=== PATIENT | female | born 1955 | race Caucasian/White ===

== ENCOUNTER 2019-04-07 11:07 | Emergency (ER) | payer MEDICARE, OTHER ==
[2019-04-07 11:38] VITALS: BP 161/93; PULSE 87; TEMP 98.4; BMI 31.3
--- NOTE | 2019-04-07 11:51 | PDOC ---
History of Present Illness - General Chief Complaint: Back Pain Stated Complaint: LOWER BACK PAIN Time Seen by Provider: 04/07/19 11:29 - History of Present Illness Initial Comments: 04/07/19 11:51 CHIEF COMPLAINT: back pain HISTORY OF PRESENT ILLNESS: 63 yo F with hx of asthma, murmur, CVA, GERD, HTN and hypercholesterolemia presents to fast track with back pain. 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 Patient is very anxious and states that she has had some burning with urination and that her boyfriend was diagnosed with "a bacterial infection in his groin or something" 2 month ago and is concerned she contracted the infection. She reports pain to b/l lower back as well as to her b/l inguinal regions but denies any vaginal discharge or odor. No recent travel or sick contacts. PAST MEDICAL HISTORY: asthma, murmur, CVA, GERD, HTN and hypercholesterolemia FAMILY HISTORY: Denies SOCIAL HISTORY: Denies tobacco, alcohol, illicit drug use. SURGICAL HISTORY: Denies ALLERGIES: No known drug allergies REVIEW OF SYSTEMS General/Constitutional: Denies fever or chills. Denies weakness, weight change. HEENT: Denies change in vision. Denies ear pain or discharge. Denies sore throat. Cardiovascular: Denies chest pain or shortness of breath. Respiratory: Denies cough, wheezing, or hemoptysis. Gastrointestinal: Denies nausea, vomiting, diarrhea or constipation. Denies rectal bleeding. Genitourinary: Burning with urination. Denies frequency. Musculoskeletal: Denies joint or muscle swelling or pain. Denies neck or back pain. Skin and breasts: Denies rash or easy bruising. Neurologic: Denies headache, vertigo, loss of consciousness, or loss of sensation. Psychiatric: Denies depression or anxiety. Endocrine: Denies increased thirst. Denies abnormal weight change. Hematologic/Lymphatic: Denies anemia, easy bleeding, or history of blood clots. Allergic/Immunologic: Denies hives or skin allergy. Denies latex allergy. PHYSICAL EXAM General Appearance: Well-appearing, appropriately dressed. No apparent distress , no intoxication. HEENT: EOMI, PERRLA, normal ENT inspection, normal voice, TMs normal, pharynx normal. No conjunctival pallor. No photophobia, scleral icterus. Neck: Supple. Trachea midline. No tenderness, rigidity, carotid bruit, stridor , lymphadenopathy, or thyromegaly. Respiratory/Chest: Lungs CTAB. No shortness of breath, chest tenderness, respiratory distress, accessory muscle use. No crackles, rales, rhonchi, stridor , wheezing, dullness Cardiovascular: RRR. S1, S2. No JVD, murmur, bradycardia, tachycardia. Vascular Pulses: Dorsalis-Pedis (R): 2+, Dorsalis-Pedis (L): 2+ Gastrointestinal/Abdominal: Normal bowel sounds. Abdomen soft, non-distended. No tenderness or rebound tenderness. No organomegaly, pulsatile mass, guarding , hernia, hepatomegaly, splenomegaly. Musculoskeletal/Extremities: Patient fully ambulatory. Sensation intact to b/ l lower extremities, no saddle anesthesia. Normal inspection. FROM of all extremities, normal capillary refill. Pelvis Stable. No CVA tenderness. No tenderness to extremities, pedal edema, swelling, erythema or deformity. Integumentary: Appropriate color, dry, warm. 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 Fully oriented, alert. Appropriate mood/affect. Motor strength 5/5. No appreciable EOM palsy, facial droop or sensory deficit. Past History - Past Medical History Allergies/Adverse Reactions: Allergies Allergy/AdvReac Type Severity Reaction Status Date / Time acetaminophen [From Percocet] AdvReac Vomiting Verified 03/18/16 15:20 amoxicillin trihydrate AdvReac Vomiting Verified 03/18/16 15:20 [From Augmentin] oxycodone HCl [From Percocet] AdvReac Vomiting Verified 03/18/16 15:20 potassium clavulanate AdvReac Vomiting Verified 03/18/16 15:20 [From Augmentin] Home Medications: Ambulatory Orders Amlodipine Besylate [Norvasc -] 2.5 mg PO DAILY 09/24/13 Aspirin 81 mg PO DAILY 09/24/13 Albuterol Sulfate Inhaler - [Ventolin HFA Inhaler -] 2 inh PO Q4H PRN #1 inh 05/31 Gabapentin 100 mg PO DAILY 01/09/15 Ibuprofen [Motrin -] 600 mg PO TID #21 tablet 01/01/16 Diclofenac Sodium 75 mg PO BID #20 tablet. 04/07/19 Anemia: No Asthma: Yes (in winter months) Cancer: No Cardiac Disorders: Yes (heart murmur) CVA: Yes (L hemiparesis - good recovery) COPD: No CHF: No Dementia: No Diabetes: No GI Disorders: Yes (reflux) Disorders: No HTN: Yes Hypercholesterolemia: Yes Liver Disease: No Seizures: No Thyroid Disease: No - Surgical History Abdominal Surgery: No Appendectomy: No Cardiac Surgery: No Cholecystectomy: Yes Lung Surgery: No Neurologic Surgery: No Orthopedic Surgery: No - Immunization History Td Vaccination: Yes TDAP Vaccination: Yes Immunization Up to Date: Yes - Psycho Social/Smoking Cessation Hx Smoking Status: No Smoking History: Never smoked Years of Tobacco Use: 0 Have you smoked in the past 12 months: No Number of Cigarettes Smoked Daily: 0 Cigars Per Day: 0 Information on smoking cessation initiated: No Hx Alcohol Use: No Drug/Substance Use Hx: No Substance Use Type: None Hx Substance Use Treatment: No *Physical Exam - Vital Signs Last Vital Signs Temp Pulse Resp BP Pulse Ox 98.4 F 87 16 161/93 100 04/07/19 11:26 04/07/19 11:26 04/07/19 11:26 04/07/19 11:26 04/07/19 11:26 Medical Decision Making - Medical Decision Making 04/07/19 12:02 63 yo F with hx of asthma, murmur, CVA, GERD, HTN and hypercholesterolemia presents to fast track with back pain. -UA, UCx 04/07/19 12:46 Patient requests empiric treatment for STDs. -azithromycin, ceftriaxone Will treat for muscle strain of lower back give recent work injury. Advised patient to take medication as prescribed and follow up with ortho if symptoms persist past 1 week. Advised patient of signs and symptoms for return to ED. Patient verbalized understanding and agrees to plan. Discharge - Discharge Information Problems reviewed: Yes Clinical Impression/Diagnosis: Possible exposure to STD Low back strain Qualifiers: Encounter type: initial encounter Qualified Code(s): S39.012A - Strain of muscle, fascia and tendon of lower back, initial encounter Condition: Stable Disposition: HOME - Admission No - Additional Discharge Information Prescriptions: Diclofenac Sodium 75 mg PO BID #20 tablet. - Follow up/Referral Referrals: Khalida Pompa [Primary Care Provider] - Herberth Kam MD [Staff Physician] - - Patient Discharge Instructions Patient Printed Discharge Instructions: DI for Low Back Pain - Post Discharge Activity Work/Back to School Note: Back to Work
[2019-04-07 12:26] LABS: EPI CELLS 6.2 /HPF (0-5/HPF); HYALINE CASTS 4 /lpf (0-8); URINE APPEARANCE CLEAR; URINE BACTERIA 82.6 /hpf (NEGATIVE); URINE BILIRUBIN NEGATIVE (NEGATIVE); URINE COLOR YELLOW; URINE GLUCOSE (UA) NEGATIVE (NEGATIVE); URINE KETONE NEGATIVE (NEGATIVE); URINE LEUK ESTERASE TRACE (NEGATIVE); URINE NITRITE NEGATIVE (NEGATIVE); URINE PROTEIN NEGATIVE (NEGATIVE); URINE RBC 3 /hpf (0-4); URINE UROBILINOGEN 0.2 mg/dL (0.2-1.0); URINE WBC 6 /hpf (0-5)
[2019-04-07] MEDS ORDERED: AZITHROMYCIN 500 MG TABLET PO ONE (12:37)
[2019-04-07] MEDS ORDERED: ONDANSETRON *ODT* 4 MG TABLET SL ONE (12:45)
[2019-04-07] MEDS ORDERED: AZITHROMYCIN 250 MG TABLET ONE (12:50)
[2019-04-07] MEDS ORDERED: ONDANSETRON *ODT* 4 MG TABLET ONE (12:50)
== END 2019-04-07 13:01 | disposition home or self-care (01) ==
LOC: JERFT 11:07
DX: Z20.2 Contact with and (suspected) exposure to infections with a predominantly sexual mode of transmission (principal); S39.012A Strain of muscle, fascia and tendon of lower back, initial encounter; X50.1XXA Overexertion from prolonged static or awkward postures, initial encounter; Y93.89 Activity, other specified; Y92.89 Other specified places as the place of occurrence of the external cause; Y99.0 Civilian activity done for income or pay; I10 Essential (primary) hypertension; E78.00 Pure hypercholesterolemia, unspecified; Z87.09 Personal history of other diseases of the respiratory system; I69.854 Hemiplegia and hemiparesis following other cerebrovascular disease affecting left non-dominant side; K21.9 Gastro-esophageal reflux disease without esophagitis; R01.1 Cardiac murmur, unspecified; Z88.6 Allergy status to analgesic agent; Z88.0 Allergy status to penicillin; Z88.5 Allergy status to narcotic agent
CPT/HCPCS: 36415; 81003; 87086; 87186; 87491; 87591; 96372; 99283-25; Q0162

== ENCOUNTER 2019-04-09 15:44 | Emergency (ER) | payer MEDICARE, OTHER ==
--- NOTE | 2019-04-09 15:54 | PDOC ---
Rapid Medical Evaluation Time Seen by Provider: 04/09/19 15:49 Medical Evaluation: Allergies Allergy/AdvReac Type Severity Reaction Status Date / Time acetaminophen [From Percocet] AdvReac Vomiting Verified 03/18/16 15:20 amoxicillin trihydrate AdvReac Vomiting Verified 03/18/16 15:20 [From Augmentin] oxycodone HCl [From Percocet] AdvReac Vomiting Verified 03/18/16 15:20 potassium clavulanate AdvReac Vomiting Verified 03/18/16 15:20 [From Augmentin] 04/09/19 15:53 CC: Back pain. Low colony count Klebsiella in urine. Not on abx PE: Right lower back pain Orders: labs Patient will proceed to ED for further evaluation. 04/09/19 15:55 Discharge Disposition - Diagnosis Back pain - Referrals - Patient Instructions - Post Discharge Activity
[2019-04-09 15:57] VITALS: BP 134/91; PULSE 101; TEMP 98.2; BMI 32.3
[2019-04-09] MEDS ORDERED: KETOROLAC TROMETHAMINE 30 MG/1 ML VIAL IM ONE (16:35)
--- NOTE | 2019-04-09 16:37 | PDOC ---
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 Patient states she was seen here 2 days ago and she was given pain medicine is not working. Review of the EMR shows she was given Toradol in the ER which she states works and then she was given diclofenac which has not worked. Patient denies dysuria. Patient's urine culture showed 50-60,000 Klebsiella. Patient was also presumptively treated for STDs. Patient has no fever and where she struggles the back pain is right on the lumbar sacral spine and going across the top of the pelvis and goes down the right leg. Patient states that the pain is worse when she bends forward to lift something. There is no numbness. Patient otherwise appears well patient is ambulatory. GENERAL/CONSTITUTIONAL: No fever, weakness. dizziness HEAD, EYES, EARS, NOSE AND THROAT: No change in vision. No ear pain or discharge. No sore throat. CARDIOVASCULAR: No chest pain RESPIRATORY: No shortness of breath or cough GASTROINTESTINAL: No pain, nausea, vomiting, diarrhea or constipation GENITOURINARY: No dysuria MUSCULOSKELETAL: No neck, +back pain SKIN: No rash NEUROLOGIC: No headache, vertigo, loss of consciousness, or loss of sensation. GENERAL: The patient is awake, alert, and fully oriented, in no acute distress. HEAD: Normal with no signs of trauma. EYES: Pupils equal, round and reactive to light, sclera anicteric, conjunctiva clear. ENT: pharynx: no erythema, no exudate, uvula midline NECK: supple CHEST: clear, nontender, rr ABD: soft, nontender BACK: + Lower lumbar sacral tenderness, no CVAT EXTREMITIES: Normal range of motion, no edema. NEUROLOGICAL: Normal speech, normal gait. SKIN: Warm, Dry 04/09/19 16:53 Past History - Past Medical History Allergies/Adverse Reactions: Allergies Allergy/AdvReac Type Severity Reaction Status Date / Time acetaminophen [From Percocet] AdvReac Vomiting Verified 04/09/19 15:54 amoxicillin trihydrate AdvReac Vomiting Verified 04/09/19 15:54 [From Augmentin] oxycodone HCl [From Percocet] AdvReac Vomiting Verified 04/09/19 15:54 potassium clavulanate AdvReac Vomiting Verified 04/09/19 15:54 [From Augmentin] Home Medications: Ambulatory Orders Amlodipine Besylate [Norvasc -] 2.5 mg PO DAILY 09/24/13 Aspirin 81 mg PO DAILY 09/24/13 Albuterol Sulfate Inhaler - [Ventolin HFA Inhaler -] 2 inh PO Q4H PRN #1 inh 05/31 Gabapentin 100 mg PO DAILY 01/09/15 Ibuprofen [Motrin -] 600 mg PO TID #21 tablet 01/01/16 Diclofenac Sodium 75 mg PO BID #20 tablet. 04/07/19 Acetaminophen W/ Codeine #3 [Tylenol # 3 -] 1 tab PO Q6H PRN #20 tablet MDD 4 Anemia: No Asthma: Yes (in winter months) Cancer: No Cardiac Disorders: Yes (heart murmur) CVA: Yes (L hemiparesis - good recovery) COPD: No CHF: No Dementia: No Diabetes: No GI Disorders: Yes (reflux) Disorders: No HTN: Yes Hypercholesterolemia: Yes Liver Disease: No Seizures: No Thyroid Disease: No - Surgical History Abdominal Surgery: No Appendectomy: No Cardiac Surgery: No Cholecystectomy: Yes Lung Surgery: No Neurologic Surgery: No Orthopedic Surgery: No - Immunization History Td Vaccination: Yes TDAP Vaccination: Yes Immunization Up to Date: Yes - Psycho Social/Smoking Cessation Hx Smoking Status: No Smoking History: Never smoked Years of Tobacco Use: 0 Have you smoked in the past 12 months: No Number of Cigarettes Smoked Daily: 0 Cigars Per Day: 0 Hx Alcohol Use: No Drug/Substance Use Hx: No Substance Use Type: None Hx Substance Use Treatment: No *Physical Exam - Vital Signs Last Vital Signs Temp Pulse Resp BP Pulse Ox 98.2 F 101 H 22 H 134/91 100 04/09/19 15:54 04/09/19 15:54 04/09/19 15:54 04/09/19 15:54 04/09/19 15:54 ED Treatment Course - RADIOLOGY Radiology Studies Ordered: Category Date Time Status SPINE-LUMBAR SACRAL [RAD] Stat Radiology 04/09/19 16:36 Ordered Medical Decision Making - Medical Decision Making 04/09/19 16:54 Patient is a 63-year-old female with a history of CVA, asthma, elevated cholesterol, hypertension 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 Pain is worse when she bends over and goes down her right leg. There is no numbness. Patient has no fever, no dysuria. Patient is ambulatory. 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 Patient had a UA that showed some bacteria 2 days ago in the ER, culture was nondiagnostic but had bacteria in it. Will repeat UA. Patient would also like an x-ray of her lower back. She wants better pain medicine. 04/09/19 17:52 UA today is negative, patient's x-ray shows degenerative changes, stool. Patient states she is not allergic to Percocet, and made her dizzy and she was taking it only at night. After full discussion regarding options of medications we decided on Tylenol with codeine. She has a appointment with Dr. Kam on Saturday. Symptoms are consistent with musculoskeletal origin Discussed issues, findings, results, applicable medications and treatments and follow-up. All these were understood and all questions were answered Discharge - Discharge Information Problems reviewed: Yes Clinical Impression/Diagnosis: Back pain Qualifiers: Back pain location: low back pain Chronicity: unspecified Back pain laterality : right Sciatica presence: with sciatica Sciatica laterality: sciatica of right side Qualified Code(s): M54.41 - Lumbago with sciatica, right side Condition: Stable Disposition: HOME - Admission No - Additional Discharge Information Prescriptions: Acetaminophen W/ Codeine #3 [Tylenol # 3 -] 1 tab PO Q6H PRN #20 tablet MDD 4 PRN Reason: Pain Prescription Drug Monitoring Program (I-STOP) results: I-STOP reviewed and no issues identified - Follow up/Referral Referrals: Khalida Pompa [Primary Care Provider] - Herberth Kam MD [Staff Physician] - - Patient Discharge Instructions Patient Printed Discharge Instructions: DI for Low Back Pain, DI for Prescription Opioid Use Additional Instructions: No heavy lifting or bending Apply ice to the area 20 minutes every 2 hours for the next 2 days Continue taking Motrin 600 mg every 6 hours for pain. If still in pain he can also take Tylenol with codeine every 6 hours. Return to the nearest ER if numbness, weakness, severe pain, problems with urinating or having bowel movements. Follow-up with Dr. 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
[2019-04-09] MEDS ORDERED: KETOROLAC TROMETHAMINE 30 MG/1 ML VIAL ONE (16:38)
[2019-04-09 17:37] LABS: URINE APPEARANCE TURBID; URINE BILIRUBIN NEGATIVE (NEGATIVE); URINE COLOR YELLOW; URINE GLUCOSE (UA) NEGATIVE (NEGATIVE); URINE KETONE NEGATIVE (NEGATIVE); URINE LEUK ESTERASE NEGATIVE (NEGATIVE); URINE NITRITE NEGATIVE (NEGATIVE); URINE PROTEIN NEGATIVE (NEGATIVE); URINE UROBILINOGEN 0.2 mg/dL (0.2-1.0)
== END 2019-04-09 18:01 | disposition home or self-care (01) ==
LOC: JERFT 15:44
PROC: 3E0233Z Introduction of Anti-inflammatory into Muscle, Percutaneous Approach (ICD-10-PCS; principal; 2019-04-09)
DX: M54.41 Lumbago with sciatica, right side (principal); I10 Essential (primary) hypertension; E78.00 Pure hypercholesterolemia, unspecified; K21.9 Gastro-esophageal reflux disease without esophagitis; R01.1 Cardiac murmur, unspecified; J45.909 Unspecified asthma, uncomplicated; Z86.73 Personal history of transient ischemic attack (TIA), and cerebral infarction without residual deficits; Z88.6 Allergy status to analgesic agent; Z88.0 Allergy status to penicillin; Z88.1 Allergy status to other antibiotic agents
CPT/HCPCS: 72100-TC-FY; 81003; 87086; 99281-25

== ENCOUNTER 2019-06-27 10:59 | Emergency (ER) | payer OTHER ==
[2019-06-27 11:20] VITALS: TEMP 97.9; BMI 31.3
[2019-06-27] MEDS ORDERED: ACETAMINOPHEN 1000 MG/100 ML VIAL (NON FORMULARY) IVPB ONE (11:41)
--- NOTE | 2019-06-27 11:43 | PDOC ---
History of Present Illness - General Chief Complaint: Chest Pain Stated Complaint: CHEST PAIN Time Seen by Provider: 06/27/19 11:18 History Source: Patient Exam Limitations: No Limitations - History of Present Illness Initial Comments: 06/27/19 15:16 63y F with PMH of HTN, Asthma presenting to ED with complaints of L sided chest pain x3 days worsened by moving the L arm. Pt states that the pain is dull and she gets short bursts of sharp pains underneath the L breast. She has been taking Tylenol without relief. She denies SOB, back pain, headache, abdominal pain, leg swelling/calf pain, recent surgeries, cough, congestion, travel, history of [place], history of smoking. PMD: Sun PMH: see hpi PSH: cholecystectomy Meds: amlodipine Allergies: Social: denies Past History - Past Medical History Allergies/Adverse Reactions: Allergies Allergy/AdvReac Type Severity Reaction Status Date / Time acetaminophen [From Percocet] AdvReac Vomiting Verified 04/09/19 15:54 amoxicillin trihydrate AdvReac Vomiting Verified 04/09/19 15:54 [From Augmentin] oxycodone HCl [From Percocet] AdvReac Vomiting Verified 04/09/19 15:54 potassium clavulanate AdvReac Vomiting Verified 04/09/19 15:54 [From Augmentin] Home Medications: Ambulatory Orders Amlodipine Besylate [Norvasc -] 2.5 mg PO DAILY 09/24/13 Aspirin 81 mg PO DAILY 09/24/13 Albuterol Sulfate Inhaler - [Ventolin HFA Inhaler -] 2 inh PO Q4H PRN #1 inh 05/31 Gabapentin 100 mg PO DAILY 01/09/15 Ibuprofen [Motrin -] 600 mg PO TID #21 tablet 01/01/16 Diclofenac Sodium 75 mg PO BID #20 tablet.dr 04/07/19 Acetaminophen W/ Codeine #3 [Tylenol # 3 -] 1 tab PO Q6H PRN #20 tablet MDD 4 Methocarbamol [Robaxin -] 750 mg PO BID #10 tablet 06/27/19 Anemia: No Asthma: Yes (in winter months) Cancer: No Cardiac Disorders: Yes (heart murmur) CVA: Yes (L hemiparesis - good recovery) COPD: No CHF: No Dementia: No Diabetes: No GI Disorders: Yes (reflux) Disorders: No HTN: Yes Hypercholesterolemia: Yes Liver Disease: No Seizures: No Thyroid Disease: No - Surgical History Abdominal Surgery: No Appendectomy: No Cardiac Surgery: No Cholecystectomy: Yes Lung Surgery: No Neurologic Surgery: No Orthopedic Surgery: No - Immunization History Td Vaccination: Yes TDAP Vaccination: Yes Immunization Up to Date: Yes - Psycho Social/Smoking Cessation Hx Smoking Status: No Smoking History: Never smoked Years of Tobacco Use: 0 Have you smoked in the past 12 months: No Number of Cigarettes Smoked Daily: 0 Cigars Per Day: 0 Information on smoking cessation initiated: No Hx Alcohol Use: No Drug/Substance Use Hx: No Substance Use Type: None Hx Substance Use Treatment: No Review of Systems - Review of Systems Constitutional: No: Symptoms Reported HEENTM: No: Symptoms Reported Respiratory: No: Symptoms reported Cardiac (ROS): Yes: See HPI ABD/GI: No: Symptoms Reported : No: Symptoms Reported Musculoskeletal: No: Symptoms Reported Integumentary: No: Symptoms Reported Neurological: No: Symptoms reported *Physical Exam - Vital Signs Last Vital Signs Temp Pulse Resp BP Pulse Ox 97.9 F 81 16 144/88 98 06/27/19 11:09 06/27/19 11:09 06/27/19 11:09 06/27/19 11:06/27/19 11:40 - Physical Exam General Appearance: Yes: Nourished, Appropriately Dressed. No: Apparent Distress HEENT: positive: EOMI, OBINNA, Normal ENT Inspection Neck: positive: Trachea midline, Supple. negative: Lymphadenopathy (R), Lymphadenopathy (L) Respiratory/Chest: positive: Chest Tender (underneath L breast and L lateral ribs and back), Lungs Clear, Normal Breath Sounds. negative: Crackles, Rales, Rhonchi, Stridor, Wheezing Cardiovascular: positive: Regular Rhythm, Regular Rate, S1, S2. negative: Edema , JVD, Murmur Vascular Pulses: Dorsalis-Pedis (R): 2+, Doralis-Pedis (L): 2+ Gastrointestinal/Abdominal: positive: Normal Bowel Sounds, Soft. negative: Tender Musculoskeletal: negative: CVA Tenderness Extremity: positive: Normal Capillary Refill. negative: Swelling, Calf Tenderness, Erythema Integumentary: positive: Normal Color, Dry, Warm. 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 No lesions seen. highly suspect msk. -ekg, cxr, trop, basic labs. CTA all labs wnl. negative trop, neg xray. CTA negative for pe, aneurysm pt given ofirmev, toradol and robaxin without resolution of symptoms. 2nd trop negative. pt given option to stay for observation or dc home with pmd f/u. pt has been having pain for 3 days. negative troponin, negative workup. chest is tender to palpation. pt expressed desire for dc. will dc. given strict return precautions. Discharge - Discharge Information Problems reviewed: Yes Clinical Impression/Diagnosis: Chest pain Qualifiers: Chest pain type: unspecified Qualified Code(s): R07.9 - Chest pain, unspecified Condition: Stable Disposition: HOME - Admission No - Additional Discharge Information Prescriptions: Methocarbamol [Robaxin -] 750 mg PO BID #10 tablet - Follow up/Referral Referrals: Sara Pompa-Curtis Acevedo [Primary Care Provider] - Lucas Torres MD [Staff Physician] - Meng Humphrey MD [Staff Physician] - Anna Stout MD [Staff Physician] - Darrell Cartwright MD [Staff Physician] - Sergio Nicole MD [Staff Physician] - Alfred Garces MD [Staff Physician] - Abimael Harrison MD [Staff Physician] - German Kaur MD [Staff Physician] - Atilio Haskins MD [Staff Physician] - - Patient Discharge Instructions Patient Printed Discharge Instructions: DI for Atypical Chest Pain, DI for Chest Pain Additional Instructions: You were seen in the emergency room today for chest pain. The blood work, CT scan, EKG appear normal. The most likely cause is a muscular pain because of the pain with movement. A prescription was sent to your pharmacy, take as directed. Please follow up with your doctor on Saturday. Referral to cardiology has been provided. Information is provided below. Please come back to the emergency room for worsening chest pain, you have difficulty breathing or if any new or concerning symptom develops. Thank you - Post Discharge Activity Work/Back to School Note: Back to Work
--- NOTE | 2019-06-27 11:43 | PDOC ---
Attending Attestation - Resident Resident Name: LeighannSaSilvia - ED Attending Attestation I have performed the following: I have examined & evaluated the patient, The case was reviewed & discussed with the resident, I agree w/resident's findings & plan, Exceptions are as noted - HPI HPI: 06/27/19 11:45 Patient is a 63-year-old female with a history of CVA, asthma, elevated cholesterol, hypertension who presents to the ER with a complaint of chest pain Patient states that her chest pain began approximately 3 days ago. Chest pain began at work. She has been away from work for the last 2 days. Chest pain associated with no fevers or chills. No associated cough. Chest pain is described as a dull pressure/ache, rated 7/10, with intermittent sharp stabbing pain believed below the breast. Patient's states chest pain is worse with movement of the left arm. Patient denies direct trauma to the chest wall. No prior episodes like this. Pain does not worsen with exertion 06/27/19 13:17 - Physicial Exam PE: 06/27/19 11:39 GENERAL: The patient is awake, alert, and fully oriented, in no acute distress. HEAD: Normal with no signs of trauma. EYES: Pupils equal, round and reactive to light, sclera anicteric, conjunctiva clear. ENT: pharynx: no erythema, no exudate, uvula midline NECK: supple CHEST: clear, nontender, rr, left-sided chest wall tenderness to palpation, pain with movement of the left arm ABD: soft, nontender EXTREMITIES: Normal range of motion, no edema. NEUROLOGICAL: Normal speech, normal gait. SKIN: Warm, Dry 04/09/19 16:53 06/27/19 11:43 - Medical Decision Making 06/27/19 13:18 Differential includes cardiac ischemia, pe, asthma exacerbation, pneumonia, pneumothorax, pleural effusion, costochondritis, pericarditis, GERD. Laboratory Tests 06/27/19 06/27/19 11:30 11:30 WBC 7.7 Hgb 13.8 Hct 42.0 Plt Count 319 D BUN 18.3 H Creatinine 0.7 Troponin I < 0.02 EKG: Sinus rhythm, rate of 80 bpm, axis normal, intervals are normal, no ST elevations or depressions, T waves are upright, low voltage overall 06/27/19 13:19
[2019-06-27 11:50] LABS: BASO % 0.9 % (0-2.0); HEMOGLOBIN 13.8 GM/dL (10.7-15.3); LYMPH % 24.4 % (8-40); MCH 29.3 pg (25.7-33.7); MCHC 32.9 g/dl (32.0-36.0); MEAN PLT VOLUME 8.4 fl (7.5-11.1); MONO % 7.2 % (3.8-10.2); NEUT % 66.5 % (42.8-82.8); PLATELET COUNT 319 K/MM3 (134-434); RBC 4.72 M/mm3 (3.60-5.2); RDW 13.6 % (11.6-15.6); WHITE BLOOD COUNT 7.7 K/mm3 (4.0-10.0)
[2019-06-27] MEDS ORDERED: ACETAMINOPHEN INJECTION 100 ML IVPB ONE (11:56)
[2019-06-27 12:13] LABS: ALBUMIN 3.4 g/dl (3.4-5.0); ALK PHOS 77 U/L (45-117); ANION GAP 6 MMOL/L (8-16); BILIRUBIN,TOTAL 1.3 mg/dL (0.2-1); BLOOD UREA NITROGEN 18.3 mg/dL (7-18); CALCIUM 8.4 mg/dL (8.5-10.1); CHLORIDE 108 mmol/L (98-107); CO2 26 mmol/L (21-32); CREATININE 0.7 mg/dL (0.55-1.3); GLUCOSE,RANDOM 104 mg/dL (74-106); MAGNESIUM 2.3 mg/dL (1.8-2.4); SGOT/AST 18 U/L (15-37); SGPT/ALT 28 U/L (13-61); SODIUM 140 mmol/L (136-145); TOT PROT 6.6 g/dl (6.4-8.2)
[2019-06-27] MEDS ORDERED: KETOROLAC TROMETHAMINE 15 MG/ML VIAL IVPUSH ONE (12:37)
[2019-06-27] MEDS ORDERED: SODIUM CHLORIDE 1,000 ML IV STA (12:39)
[2019-06-27] MEDS ORDERED: KETOROLAC TROMETHAMINE 15 MG/ML VIAL ONE ×2 (12:44→14:52)
[2019-06-27 14:17] VITALS: BP 124/68; PULSE 76
--- NOTE | 2019-06-27 15:10 | EKG ---
Test Reason : Blood Pressure : / mmHG Vent. Rate : 080 BPM Atrial Rate : 080 BPM P-R Int : 160 ms QRS Dur : 082 ms QT Int : 362 ms P-R-T Axes : 145 017 080 degrees QTc Int : 417 ms UNUSUAL P AXIS, POSSIBLE ECTOPIC ATRIAL RHYTHM Posible arm leg leads reversal. Please repeate EKG LOW VOLTAGE QRS NONSPECIFIC T WAVE ABNORMALITY ABNORMAL ECG WHEN COMPARED WITH ECG OF 01-JAN-2016 10:25, ECTOPIC ATRIAL RHYTHM HAS REPLACED SINUS RHYTHM NONSPECIFIC T WAVE ABNORMALITY NOW EVIDENT IN INFERIOR LEADS Confirmed by LILLY ROMERO, HENNA ([id number]) on 06/27/2019 3:09:57 PM Referred By: Confirmed By:HENNA CARR MD
[2019-06-27] MEDS ORDERED: ASPIRIN COATED 81 MG TABLET.EC PO ONE (15:19)
[2019-06-27] MEDS ORDERED: METHOCARBAMOL 500 MG TABLET PO ONE (15:43)
[2019-06-27] MEDS ORDERED: ASPIRIN COATED 81 MG TABLET.EC ONE (16:07)
[2019-06-27] MEDS ORDERED: METHOCARBAMOL 500 MG TABLET ONE (16:07)
== END 2019-06-27 18:01 | disposition home or self-care (01) ==
LOC: JER 10:59
PROC: 3E033NZ Introduction of Analgesics, Hypnotics, Sedatives into Peripheral Vein, Percutaneous Approach (ICD-10-PCS; principal; 2019-06-27)
PROC: 3E0333Z Introduction of Anti-inflammatory into Peripheral Vein, Percutaneous Approach (ICD-10-PCS; 2019-06-27)
DX: R07.9 Chest pain, unspecified (principal); I10 Essential (primary) hypertension; E78.00 Pure hypercholesterolemia, unspecified; K21.9 Gastro-esophageal reflux disease without esophagitis; Z86.73 Personal history of transient ischemic attack (TIA), and cerebral infarction without residual deficits; Z87.09 Personal history of other diseases of the respiratory system; Z88.1 Allergy status to other antibiotic agents; Z88.5 Allergy status to narcotic agent; Z88.8 Allergy status to other drugs, medicaments and biological substances
CPT/HCPCS: 36415; 71045-TC-FY; 71275-TC; 80053; 83735; 84484; 85025; 93005; 93010; 96374; 96375; 99285-25; J0131; J7030; Q9967

== ENCOUNTER 2020-01-06 09:38 | Emergency (ER) | payer OTHER ==
[2020-01-06 09:43] VITALS: BP 155/86; PULSE 72; TEMP 98; BMI 34.1
--- NOTE | 2020-01-06 09:44 | PDOC ---
Rapid Medical Evaluation Medical Evaluation: Allergies Allergy/AdvReac Type Severity Reaction Status Date / Time acetaminophen [From Percocet] AdvReac Vomiting Verified 10/17/19 12:11 amoxicillin trihydrate AdvReac Vomiting Verified 10/17/19 12:11 [From Augmentin] oxycodone HCl [From Percocet] AdvReac Vomiting Verified 10/17/19 12:11 potassium clavulanate AdvReac Vomiting Verified 10/17/19 12:11 [From Augmentin] 01/06/20 09:40 64 yo F arthritis, HTN, HL c/o pain to L 5th digit s/p laceration sustained 4 days ago with a knife while cutting meat at home. received tetanus and laceration repair at [facility]. currently taking clindamycin. denies f/c. states she has been changing her dressing daily. VSS dressing to L 5th digit A/P: wound check ft
--- NOTE | 2020-01-06 10:01 | PDOC ---
History of Present Illness - General Chief Complaint: Pain Stated Complaint: PAIN Time Seen by Provider: 01/06/20 09:41 History Source: Patient - History of Present Illness Occurred: reports: other Upper Extremity Pain Location: left: 5th finger Past History - Medical History Allergies/Adverse Reactions: Allergies Allergy/AdvReac Type Severity Reaction Status Date / Time acetaminophen [From Percocet] AdvReac Vomiting Verified 10/17/19 12:11 amoxicillin trihydrate AdvReac Vomiting Verified 10/17/19 12:11 [From Augmentin] oxycodone HCl [From Percocet] AdvReac Vomiting Verified 10/17/19 12:11 potassium clavulanate AdvReac Vomiting Verified 10/17/19 12:11 [From Augmentin] Home Medications: Ambulatory Orders Amlodipine Besylate [Norvasc -] 2.5 mg PO DAILY 09/24/13 Aspirin 81 mg PO DAILY 09/24/13 Albuterol Sulfate Inhaler - [Ventolin HFA Inhaler -] 2 inh PO Q4H PRN #1 inh 08/26/14 Gabapentin 100 mg PO DAILY 01/09/15 Ibuprofen [Motrin -] 600 mg PO TID #21 tablet 01/01/16 Diclofenac Sodium 75 mg PO BID #20 tablet.dr 04/07/19 Acetaminophen W/ Codeine #3 [Tylenol # 3 -] 1 tab PO Q6H PRN #20 tablet MDD 4 04/09/19 Methocarbamol [Robaxin -] 750 mg PO BID #10 tablet 06/27/19 Ibuprofen [Motrin -] 800 mg PO Q6H #30 tablet 01/06/20 Anemia: No Asthma: Yes (in winter months) Cancer: No Cardiac Disorders: Yes (heart murmur) CVA: Yes (L hemiparesis - good recovery) COPD: No CHF: No Dementia: No Diabetes: No GI Disorders: Yes (reflux) Disorders: No HTN: Yes Hypercholesterolemia: Yes Liver Disease: No Seizures: No Thyroid Disease: No - Surgical History Abdominal Surgery: No Appendectomy: No Cardiac Surgery: No Cholecystectomy: Yes Lung Surgery: No Neurologic Surgery: No Orthopedic Surgery: No - Immunization History Td Vaccination: Yes TDAP Vaccination: Yes Immunization Up to Date: Yes - Psycho-Social/Smoking History Smoking Status: No Smoking History: Never smoked Years of Tobacco Use: 0 Have you smoked in the past 12 months: No Number of Cigarettes Smoked Daily: 0 Cigars Per Day: 0 Information on smoking cessation initiated: No - Substance Abuse Hx (Audit-C & DAST Scrn) How often the patient has a drink containing alcohol: Never Score: In Men: 4 or > Positive; In Women: 3 or > Positive: 0 Screen Result (Pos requires Nsg. Audit-10AR): Negative In the last yr the pt used illegal drug/Rx for NonMed reason: No Score: Yes response is considered Positive: 0 Screen Result (Positive result requires Nsg. DAST-10): Negative Review of Systems - Review of Systems Constitutional: No: Chills, Fever *Physical Exam - Vital Signs Last Vital Signs Temp Pulse Resp BP Pulse Ox 98 F 72 19 155/86 99 01/06/20 09:41 01/06/20 09:41 01/06/20 09:41 01/06/20 09:41 01/06/20 09:41 - Physical Exam General Appearance: Yes: Appropriately Dressed. No: Apparent Distress HEENT: positive: Normal Voice Neck: positive: Supple Respiratory/Chest: negative: Respiratory Distress Extremity: positive: Other (well healing lac to dorsum of L 5th finger w/ sutures in place, limited erythema w/ ttp to site, no discharge or streaking, FROMI to finger without increased pain) Integumentary: positive: Dry, Warm Neurologic: positive: Fully Oriented, Alert, Normal Mood/Affect Medical Decision Making - Medical Decision Making 01/06/20 09:56 64 yo F, HTN< HLD, here for finger pain. Pt s/p laceration of L 5th digit 5 days ago. S/p suture repair and given tetanus at [facility]. States she returned to [facility] 2 days ago w/ persistent pain and was started on clinda and taking tylenol but states pain continues. No increased redness or swelling and no f/c. Pt requesting "something stronger" for pain see exam S/p suture repair to L 5th finger 5 days ago, on abx, here w/ persistent pain despite taking tylenol Well yair and stable w/ well healing lac to dorsum of L 5th finger w/ sutures in place, limited erythema w/ ttp to site, no discharge or streaking, FROMI to finger without increased pain Dc w/ pain control, to continue abx Suture removal in 2 days a d/w pt Discharge - Discharge Information Problems reviewed: Yes Clinical Impression/Diagnosis: Finger pain, left Condition: Good Disposition: HOME - Additional Discharge Information Prescriptions: Ibuprofen [Motrin -] 800 mg PO Q6H #30 tablet - Follow up/Referral - Patient Discharge Instructions Additional Instructions: Take motrin as directed for pain Continue antibiotics Return in 2 days for suture removal - Post Discharge Activity
== END 2020-01-06 10:05 | disposition home or self-care (01) ==
LOC: JERFT 09:38
DX: M79.645 Pain in left finger(s) (principal)
CPT/HCPCS: 99282-25

== ENCOUNTER 2020-01-11 11:10 | Emergency (ER) | payer OTHER ==
[2020-01-11 11:27] VITALS: BP 145/90; PULSE 84; TEMP 98.7; BMI 32.3
--- NOTE | 2020-01-11 11:27 | PDOC ---
Rapid Medical Evaluation Chief Complaint: Suture/Staple Removal (other) Time Seen by Provider: 01/11/20 11:23 Medical Evaluation: Allergies Allergy/AdvReac Type Severity Reaction Status Date / Time acetaminophen [From Percocet] AdvReac Vomiting Verified 01/11/20 11:23 amoxicillin trihydrate AdvReac Vomiting Verified 01/11/20 11:23 [From Augmentin] oxycodone HCl [From Percocet] AdvReac Vomiting Verified 01/11/20 11:23 potassium clavulanate AdvReac Vomiting Verified 01/11/20 11:23 [From Augmentin] 01/11/20 11:24 Pt presents for suture removal of the L 5th finger. Stitches were initially placed in [facility]. PT was on antibiotics Exam: L 5th digit mildly swollen, with surrounding erythema Orders: nothing Pt to proceed to the ER for further evaluation Discharge Disposition - Diagnosis Suture check - Referrals - Patient Instructions - Post Discharge Activity
--- NOTE | 2020-01-11 12:20 | PDOC ---
Suture Removal/Wound Check HPI - History of Present Illness Chief Complaint: Suture/Staple Removal (other) Stated Complaint: SUTURE/STAPLE REMOVAL Time Seen by Provider: 01/11/20 11:23 History Source: Yes: Patient, Old Records Exam Limitations: Yes: No Limitations Treated at: Other ED Date of Last ED visit: 01/06/20 - Previous ED Treatment Type of procedure performed on last visit: Yes: Other Antibiotics Prescribed: Yes (Clindamycin) Past History - Medical History Allergies/Adverse Reactions: Allergies Allergy/AdvReac Type Severity Reaction Status Date / Time acetaminophen [From Percocet] AdvReac Vomiting Verified 01/11/20 11:23 amoxicillin trihydrate AdvReac Vomiting Verified 01/11/20 11:23 [From Augmentin] oxycodone HCl [From Percocet] AdvReac Vomiting Verified 01/11/20 11:23 potassium clavulanate AdvReac Vomiting Verified 01/11/20 11:23 [From Augmentin] Home Medications: Ambulatory Orders Amlodipine Besylate [Norvasc -] 2.5 mg PO DAILY 09/24/13 Aspirin 81 mg PO DAILY 09/24/13 Albuterol Sulfate Inhaler - [Ventolin HFA Inhaler -] 2 inh PO Q4H PRN #1 inh 08/26/14 Gabapentin 100 mg PO DAILY 01/09/15 Ibuprofen [Motrin -] 600 mg PO TID #21 tablet 01/01/16 Diclofenac Sodium 75 mg PO BID #20 tablet. 04/07/19 Acetaminophen W/ Codeine #3 [Tylenol # 3 -] 1 tab PO Q6H PRN #20 tablet MDD 4 04/09/19 Methocarbamol [Robaxin -] 750 mg PO BID #10 tablet 06/27/19 Ibuprofen [Motrin -] 800 mg PO Q6H #30 tablet 01/06/20 Anemia: No Asthma: Yes (in winter months) Cancer: No Cardiac Disorders: Yes (heart murmur) CVA: Yes (L hemiparesis - good recovery) COPD: No CHF: No Dementia: No Diabetes: No GI Disorders: Yes (reflux) Disorders: No HTN: Yes Hypercholesterolemia: Yes Liver Disease: No Seizures: No Thyroid Disease: No - Surgical History Abdominal Surgery: No Appendectomy: No Cardiac Surgery: No Cholecystectomy: Yes Lung Surgery: No Neurologic Surgery: No Orthopedic Surgery: No - Immunization History Td Vaccination: Yes TDAP Vaccination: Yes Immunization Up to Date: Yes - Psycho-Social/Smoking History Smoking Status: No Smoking History: Never smoked Years of Tobacco Use: 0 Have you smoked in the past 12 months: No Number of Cigarettes Smoked Daily: 0 Cigars Per Day: 0 - Substance Abuse Hx (Audit-C & DAST Scrn) How often the patient has a drink containing alcohol: Never Score: In Men: 4 or > Positive; In Women: 3 or > Positive: 0 Screen Result (Pos requires Nsg. Audit-10AR): Negative In the last yr the pt used illegal drug/Rx for NonMed reason: No Score: Yes response is considered Positive: 0 Screen Result (Positive result requires Nsg. DAST-10): Negative Suture Removal/Wound Check PE - Physical Exam Laceration/Wound Check Symptoms: reports: Redness Pain Intensity: 3 Current Severity Level: Mild Maximum Severity Level: Mild Location of Laceration/Wound: left: Finger (5th) Pain Radiation: None *Review of Systems - Review of Systems Able to Perform ROS?: Yes Constitutional: No: Symptoms Reported HEENTM: No: Symptoms Reported Respiratory: No: Symptoms reported Cardiac (ROS): No: Symptoms Reported ABD/GI: No: Symptoms Reported : No: Symptoms Reported Musculoskeletal: No: Symptoms Reported Integumentary: Yes: See HPI Neurological: No: Symptoms reported Endocrine: No: Symptoms Reported Hematologic/Lymphatic: No: Symptoms Reported *Physical Exam - Vital Signs Last Vital Signs Temp Pulse Resp BP Pulse Ox 98.7 F 84 15 145/90 99 01/11/20 11:23 01/11/20 11:23 01/11/20 11:23 01/11/20 11:23 01/11/20 11:23 - Physical Exam General Appearance: Yes: Appropriately Dressed. No: Apparent Distress Extremity: positive: Swelling (Swelling surrounding suture line.), Erythema (Erythema and swelling surrounding suture line. Suture line approximated with poor healing. No discharge or drainage present.) Medical Decision Making - Medical Decision Making 01/11/20 12:26 A/P: 64-year-old woman with encounter for suture removal Poor healing present and sutures. Erythema surrounding wounds which patient states is improving on clindamycin. No discharge or drainage present from the wound As there is delayed healing will leave sutures in at this time and patient has been instructed to return in 2 days for reevaluation. Discharge home Discharge - Discharge Information Problems reviewed: Yes Clinical Impression/Diagnosis: Suture check Condition: Stable Disposition: HOME - Admission No - Follow up/Referral - Patient Discharge Instructions Additional Instructions: Continue antibiotics as previously prescribed. Take Motrin as needed for pain. Follow interpreter and translator's instructions for appropriate dosage. Return to the emergency department in 2 days for reevaluation of your wounds. Return to the emerge department sooner for any red streaks up your hands, fevers, chills, worsening redness or for any other symptoms. Thank you very much for choosing us to provide your emergent healthcare needs. - Post Discharge Activity
== END 2020-01-11 12:29 | disposition home or self-care (01) ==
LOC: JERFT 11:10
DX: Z48.89 Encounter for other specified surgical aftercare (principal)
CPT/HCPCS: 99281-25

== ENCOUNTER 2020-07-23 20:48 | Emergency (ER) | payer OTHER ==
[2020-07-23 21:05] VITALS: PULSE 82; TEMP 98; BMI 32.3
[2020-07-23 22:41] LABS: BASO % 0.5 % (0-2.0); EOS % 1.7 % (0-4.5); HEMATOCRIT 39.9 % (32.4-45.2); HEMOGLOBIN 13.2 GM/dL (10.7-15.3); LYMPH % 32.2 % (8-40); MCH 29.4 pg (25.7-33.7); MEAN CELL VOLUME 89.1 fl (80-96); MEAN PLT VOLUME 8.1 fl (7.5-11.1); MONO % 8.3 % (3.8-10.2); NEUT % 57.3 % (42.8-82.8); PLATELET COUNT 294 K/MM3 (134-434); RBC 4.48 M/mm3 (3.60-5.2); WHITE BLOOD COUNT 9.7 K/mm3 (4.0-10.0)
[2020-07-23 22:43] LABS: POTASSIUM 3.7 mmol/L (3.5-5.1)
[2020-07-23 22:45] LABS: CALCIUM 8.1 mg/dL (8.5-10.1)
[2020-07-23 22:46] LABS: ALBUMIN 3.4 g/dl (3.4-5.0); BLOOD UREA NITROGEN 17.6 mg/dL (7-18)
[2020-07-23 22:49] LABS: CREATININE 0.8 mg/dL (0.55-1.3)
[2020-07-23 22:50] LABS: BILIRUBIN,TOTAL 1.2 mg/dL (0.2-1); TOT PROT 6.6 g/dl (6.4-8.2)
[2020-07-24 01:08] VITALS: BP 152/92
== END 2020-07-24 01:08 | disposition home or self-care (01) ==
LOC: JER 20:48
DX: K62.5 Hemorrhage of anus and rectum (principal); R10.32 Left lower quadrant pain
CPT/HCPCS: 36415; 74177-TC; 80053; 82272; 83605; 85025; 86850; 86900; 86901; 99285-25; Q9967

== ENCOUNTER 2020-08-24 11:42 | Emergency (ER) | payer OTHER ==
[2020-08-24 11:47] VITALS: TEMP 98.2; BMI 30.2
[2020-08-24 14:31] VITALS: BP 160/89; PULSE 78
== END 2020-08-24 14:31 | disposition home or self-care (01) ==
LOC: JER 11:42
DX: M79.605 Pain in left leg (principal)
CPT/HCPCS: 73610-TC-LT-FY; 93971-TC; 99284-25

== ENCOUNTER 2020-09-21 11:41 | Emergency (ER) | payer OTHER ==
[2020-09-21 11:47] VITALS: BP 169/89; PULSE 78; TEMP 98.4; BMI 32.3
[2020-09-21 12:43] LABS: EPI CELLS >36 /uL (0-25.1); HYALINE CASTS 2 /uL (0-3.1); URINE APPEARANCE CLOUDY; URINE BACTERIA 836 /uL (0-1359); URINE BILIRUBIN NEGATIVE (NEGATIVE); URINE COLOR YELLOW; URINE GLUCOSE (UA) NEGATIVE (NEGATIVE); URINE KETONE NEGATIVE (NEGATIVE); URINE LEUK ESTERASE 1+ (NEGATIVE); URINE NITRITE NEGATIVE (NEGATIVE); URINE PROTEIN NEGATIVE (NEGATIVE); URINE RBC 29 /uL (0-23.9); URINE UROBILINOGEN 0.2 mg/dL (0.2-1.0); URINE WBC 46 /uL (0-25.8)
== END 2020-09-21 12:57 | disposition home or self-care (01) ==
LOC: JERFT 11:41
DX: R30.0 Dysuria (principal)
CPT/HCPCS: 81003; 87086; 87186; 99283-25

== ENCOUNTER 2020-09-27 10:32 | Emergency (ER) | payer OTHER ==
[2020-09-27 10:40] VITALS: BP 153/83; PULSE 87; TEMP 98; BMI 32.3
[2020-09-27] MEDS ORDERED: KETOROLAC TROMETHAMINE 30 MG/1 ML VIAL IM ONE (11:11)
[2020-09-27] MEDS ORDERED: KETOROLAC TROMETHAMINE 30 MG/1 ML VIAL ONE (11:15)
== END 2020-09-27 12:14 | disposition home or self-care (01) ==
LOC: JER 10:32
PROC: 3E0333Z Introduction of Anti-inflammatory into Peripheral Vein, Percutaneous Approach (ICD-10-PCS; principal; 2020-09-27)
DX: M79.605 Pain in left leg (principal); N30.00 Acute cystitis without hematuria
CPT/HCPCS: 99284-25

== ENCOUNTER 2020-12-19 17:06 | Emergency (ER) | payer OTHER ==
[2020-12-19 17:19] VITALS: BP 159/96; PULSE 71; TEMP 97; BMI 32.3
[2020-12-19] MEDS ORDERED: KETOROLAC TROMETHAMINE 15 MG/ML VIAL IM ONE (18:15)
[2020-12-19] MEDS ORDERED: LIDOCAINE 5% TOPICAL PATCH TP ONE (18:15)
[2020-12-19] MEDS ORDERED: LIDOCAINE 5% TOPICAL PATCH ONE (18:16)
[2020-12-19] MEDS ORDERED: KETOROLAC TROMETHAMINE 15 MG/ML VIAL ONE (18:16)
[2020-12-19] MEDS ORDERED: LIDOCAINE PATCH REMOVAL MC SCH (22:00)
== END 2020-12-19 18:40 | disposition home or self-care (01) ==
LOC: JERFT 17:06
PROC: 3E023GC Introduction of Other Therapeutic Substance into Muscle, Percutaneous Approach (ICD-10-PCS; principal; 2020-12-19)
DX: S96.912A Strain of unspecified muscle and tendon at ankle and foot level, left foot, initial encounter (principal); S86.912A Strain of unspecified muscle(s) and tendon(s) at lower leg level, left leg, initial encounter; W01.0XXA Fall on same level from slipping, tripping and stumbling without subsequent striking against object, initial encounter
CPT/HCPCS: 73562-TC-LT-FY; 73610-TC-LT-FY; 73630-TC-LT; 96372; 99284-25

== ENCOUNTER 2023-01-09 02:14 | Observation (INO) | payer OTHER ==
[2023-01-09 02:22] VITALS: BMI 38.3
[2023-01-09] MEDS ORDERED: ACETAMINOPHEN 1000 MG/100 ML BAG IVPB ONE (02:38)
[2023-01-09] MEDS ORDERED: ACETAMINOPHEN INJECTION 100 ML IVPB ONE (03:09)
[2023-01-09 03:32] LABS: BASO % 1.1 % (0-2.0); EOS % 1.1 % (0-4.5); HEMATOCRIT 39.8 % (32.4-45.2); HEMOGLOBIN 13.6 GM/dL (10.7-15.3); LYMPH % 6.9 % (8-40); MCHC 34.2 g/dl (32.0-36.0); MEAN CELL VOLUME 84.7 fl (80-96); MEAN PLT VOLUME 8.3 fl (7.5-11.1); MONO % 7.5 % (3.8-10.2); NEUT % 83.4 % (42.8-82.8); PLATELET COUNT 260 10^3/uL (134-434); RBC 4.69 M/mm3 (3.60-5.2); WHITE BLOOD COUNT 9.7 K/mm3 (4.0-10.0)
[2023-01-09 03:47] LABS: POTASSIUM 4.6 mmol/L (3.5-5.1)
[2023-01-09 03:49] LABS: ALBUMIN 3.4 g/dl (3.4-5.0); CALCIUM 7.8 mg/dL (8.5-10.1)
[2023-01-09 03:52] LABS: CREATININE 0.9 mg/dL (0.55-1.3)
[2023-01-09 03:53] VITALS: RESP 16
[2023-01-09 03:53] LABS: INR 1.02 (0.83-1.09); PROTHROMBIN TIME (PATIENT) 11.8 SEC (9.7-13.0)
[2023-01-09 03:54] LABS: BILIRUBIN,TOTAL 1.1 mg/dL (0.2-1); TOT PROT 7.1 g/dl (6.4-8.2)
[2023-01-09 03:56] LABS: ACTIVATED PTT 27.3 SECONDS (25.2-36.5)
[2023-01-09] MEDS ORDERED: LACTATED RINGERS SOLUTION 1,000 ML/1,000 ML INFUS.BAG IV SCH ×2 (06:30)
[2023-01-09 07:56] VITALS: BP 148/72; PULSE 80; TEMP 98.7
[2023-01-09] MEDS ORDERED: ACETAMINOPHEN 325 MG TABLET (FP) PO PRN (08:48)
[2023-01-09] MEDS ORDERED: ENOXAPARIN NA (PORCINE) 40 MG/0.4 ML DISP.SYRIN SQ SCH (10:00)
[2023-01-09] MEDS ORDERED: LORATADINE 10 MG TABLET PO SCH (10:00)
== END 2023-01-09 11:49 | disposition home or self-care (01) ==
LOC: JER 02:14 → JERBED 06:25
PROC: 3E033NZ Introduction of Analgesics, Hypnotics, Sedatives into Peripheral Vein, Percutaneous Approach (ICD-10-PCS; principal; 2023-01-09)
PROC: 3E0337Z Introduction of Electrolytic and Water Balance Substance into Peripheral Vein, Percutaneous Approach (ICD-10-PCS; 2023-01-09)
DX: U07.1 COVID-19 (principal); K21.9 Gastro-esophageal reflux disease without esophagitis; J45.909 Unspecified asthma, uncomplicated; R01.1 Cardiac murmur, unspecified; I10 Essential (primary) hypertension; E78.5 Hyperlipidemia, unspecified; I69.859 Hemiplegia and hemiparesis following other cerebrovascular disease affecting unspecified side; Z88.0 Allergy status to penicillin; Z88.6 Allergy status to analgesic agent; Z88.8 Allergy status to other drugs, medicaments and biological substances
CPT/HCPCS: 0241U-QW; 36415; 71045-TC-FY; 80053; 83690; 84443; 84484; 85025; 85610; 85730; 93005; 93010; 96361; 96374; 99285-25; G0378

== ENCOUNTER 2023-11-26 09:38 | Emergency (ER) | payer OTHER ==
[2023-11-26 09:45] VITALS: BMI 32.9
[2023-11-26 10:32] LABS: BASO % 1.2 % (0-2.0); EOS % 2.6 % (0-4.5); HEMATOCRIT 42.2 % (32.4-45.2); HEMOGLOBIN 14.1 GM/dL (10.7-15.3); LYMPH % 33.5 % (8-40); MCH 29.5 pg (25.7-33.7); MCHC 33.5 g/dl (32.0-36.0); MEAN CELL VOLUME 88.1 fl (80-96); MEAN PLT VOLUME 8.3 fl (7.5-11.1); MONO % 9.9 % (3.8-10.2); NEUT % 52.8 % (42.8-82.8); PLATELET COUNT 295 10^3/uL (134-434); RBC 4.79 M/mm3 (3.60-5.2); RDW 14.1 % (11.6-15.6); WHITE BLOOD COUNT 7.6 K/mm3 (4.0-10.0)
[2023-11-26 10:42] LABS: INR 0.91 (0.83-1.09); PROTHROMBIN TIME (PATIENT) 10.3 SEC (9.7-13.0)
[2023-11-26 10:45] LABS: ACTIVATED PTT 34.1 SECONDS (25.2-36.5)
[2023-11-26 10:54] LABS: POTASSIUM 5.4 mmol/L (3.5-5.1)
[2023-11-26 10:56] LABS: CALCIUM 8.6 mg/dL (8.5-10.1)
[2023-11-26 10:57] LABS: ALBUMIN 3.3 g/dl (3.4-5.0); BLOOD UREA NITROGEN 13.6 mg/dL (7-18); MAGNESIUM 2.1 mg/dL (1.8-2.4)
[2023-11-26 11:00] LABS: CREATININE 0.7 mg/dL (0.55-1.3)
[2023-11-26 11:02] LABS: BILIRUBIN,TOTAL 0.9 mg/dL (0.2-1); TOT PROT 7.1 g/dl (6.4-8.2)
[2023-11-26 11:05] LABS: N-TERMINAL BNP 45.6 pg/ml (5-125)
[2023-11-26 12:00] LABS: POTASSIUM 4.2 mmol/L (3.5-5.1)
[2023-11-26 12:02] LABS: BLOOD UREA NITROGEN 13.6 mg/dL (7-18); CALCIUM 8.4 mg/dL (8.5-10.1)
[2023-11-26 12:06] LABS: CREATININE 0.7 mg/dL (0.55-1.3)
[2023-11-26 14:14] VITALS: BP 147/81; PULSE 69; RESP 18; TEMP 97.4
== END 2023-11-26 14:50 | disposition home or self-care (01) ==
LOC: JER 09:38
DX: R07.9 Chest pain, unspecified (principal)
CPT/HCPCS: 36415; 71045-TC-FY; 80048; 80053; 83690; 83735; 83880; 84484; 85025; 85610; 85730; 93005; 93010; 99285-25